=== PATIENT | female | born 1930 | race Caucasian/White ===

== ENCOUNTER → 2019-06-04 | Outpatient (CLI) | payer MEDICARE, OTHER | LOC: M.MRI 13:36 | DX: I63.22 Cerebral infarction due to unspecified occlusion or stenosis of basilar artery (principal); I67.82 Cerebral ischemia; G31.9 Degenerative disease of nervous system, unspecified; E11.22 Type 2 diabetes mellitus with diabetic chronic kidney disease; I12.9 Hypertensive chronic kidney disease with stage 1 through stage 4 chronic kidney disease, or unspecified chronic kidney disease; N18.3 Chronic kidney disease, stage 3 (moderate); H74.8X1 Other specified disorders of right middle ear and mastoid ==

== ENCOUNTER → 2019-06-07 | Outpatient (CLI) | payer MEDICARE, OTHER | LOC: M.RAD 10:34 | DX: R47.02 Dysphasia (principal); R13.12 Dysphagia, oropharyngeal phase; I12.9 Hypertensive chronic kidney disease with stage 1 through stage 4 chronic kidney disease, or unspecified chronic kidney disease; E11.22 Type 2 diabetes mellitus with diabetic chronic kidney disease; N18.3 Chronic kidney disease, stage 3 (moderate); M54.5 Low back pain; G89.29 Other chronic pain; R47.1 Dysarthria and anarthria ==